=== PATIENT | male | born 1955 | race Caucasian/White ===

== ENCOUNTER 2018-06-24 19:32 | Inpatient (IN) | payer BC ==
[~2018-06-24] VITALS: Ht 193 cm; Wt 140.4 kg
[~2018-06-24 19:32] MED LIST: ASPIRIN EC81 M1 PO; FISH OIL 1,001000 M2 PO; GLUCOPHAGE XR500 MG PO; HYDROCHLOROTHIA25 M1 PO; LISINOPRIL40 MG PO; LOVASTAT40 PO; MULTI-VITAMIN1 EAC5 PO; NOVOLOG MI100 UNIT/2 SUBQ; REGULAR INSULIN; ZOLOFT100 MG PO
[2018-06-24 19:37] VITALS: BP 154/82
[2018-06-24 20:07] LABS: ABSOLUTE EOSINOPHILS 0.1 thou/uL (0.0-0.7); ABSOLUTE LYMPHOCYTES 1.9 thou/uL (0.8-5.3); ABSOLUTE MONOCYTES 0.9 thou/uL (0.0-1.2); ABSOLUTE NEUTROPHILS 7.2 thou/uL (1.6-8.1); BASOPHILS 0.5 %; EOSINOPHILS 1.3 %; HEMATOCRIT 42.5 % (42.0-52.0); HEMOGLOBIN 14.1 gm/dL (14.0-18.0); LYMPHOCYTES 19.1 %; MCH 29.3 pg (26.0-34.0); MCHC 33.3 g/dL (28.0-37.0); MCV 88.1 fL (80.0-100.0); MONOCYTES 8.5 %; MPV 9.7 fl. (7.2-11.1); NUCLEATED RBCS 0 /100WBC; PLATELET COUNT* 242 thou/uL (150-400); POLYS 70.6 %; RBC 4.82 mil/uL (4.50-6.00); RDW-CV 13.9 % (10.5-14.5); WBC 10.2 thou/uL (4.0-11.0)
[2018-06-24 20:15] LABS: ANION GAP 7 mmol/L (7-16); BUN 25 mg/dL (7-18); CALCIUM 9.1 mg/dL (8.5-10.1); CHLORIDE 98 mmol/L (98-107); CO2 30 mmol/L (21-32); CREATININE 1.2 mg/dL (0.6-1.3); GLUCOSE 397 mg/dL (70-99); POTASSIUM 3.7 mmol/L (3.5-5.1); PROTIME 10.6 Seconds (9.20-11.50); SODIUM 135 mmol/L (136-145)
[2018-06-24 20:26] LABS: ALBUMIN 4.1 g/dL (3.4-5.0); ALKALINE PHOSPHATASE 62 U/L (46-116); LIPASE 82 U/L (73-393); NT-PRO BRAIN NAT PEPTIDE 59 pg/mL (<300); SGOT 27 U/L (15-37); SGPT 46 U/L (30-65); TOTAL BILIRUBIN 0.4 mg/dL (<0.1-1.0); TOTAL PROTEIN 7.5 g/dL (6.4-8.2); TROPONIN-I LEVEL <0.06 ng/mL (<0.06)
[2018-06-24 21:57] VITALS: BP 130/57
[2018-06-24 22:30] VITALS: BP 154/68
[2018-06-25 04:00] VITALS: BP 139/52
--- NOTE | 2018-06-25 04:09 | NUR ---
RECEIVED REPORT AND ASSUMED CARE AT 2215. PT TRANSPORTED FROM ED TO ROOM 231. VSS. CARDIAC MONITORING IN PLACE. ASSESSMENT COMPLETED CHARTED. PT ORIENTATED TO ROOM, CALL LIGHT, FALL POLICY. ADMISSION COMPLETED CHARTED. DISCUSSED PLAN OF CARE WITH PT, NPO AFTER MIDNIGHT. PT UP AD WILLARD IN ROOM, ON RA. NURSING WILL CONTINUE TO MONITOR
[2018-06-25] MEDS ORDERED: LANTUS SUBQ (04:34)
[2018-06-25] MEDS ORDERED: IBUPROFEN 800800 M1 PO (04:35)
[2018-06-25] MEDS ORDERED: PROBIOTIC1 EAC1 PO (04:36)
[2018-06-25] MEDS ORDERED: DEPAKOTE ER500 MG PO (04:36)
[2018-06-25] MEDS ORDERED: COQ-10100 MG PO (04:37)
[2018-06-25] MEDS ORDERED: CINNAMON500 MG PO (04:37)
[2018-06-25] MEDS ORDERED: VITAMIN E400 UNIT PO (04:38)
[2018-06-25] MEDS ORDERED: VITAMIN D3400 UNIT PO (04:38)
[2018-06-25] MEDS ORDERED: ZINC50 M1 PO (04:39)
[2018-06-25] MEDS ORDERED: CLARITIN-D 12 H1 TA2 PO (04:41)
[2018-06-25 04:45] LABS: HEMATOCRIT 36.2 % (42.0-52.0); MCH 29.2 pg (26.0-34.0); MCHC 33.3 g/dL (28.0-37.0); MCV 87.6 fL (80.0-100.0); MPV 9.8 fl. (7.2-11.1); RBC 4.13 mil/uL (4.50-6.00); RDW-CV 13.7 % (10.5-14.5); WBC 5.8 thou/uL (4.0-11.0)
[2018-06-25 04:57] LABS: HEMOGLOBIN 12.1 gm/dL (14.0-18.0)
[2018-06-25 05:16] LABS: ALBUMIN 3.4 g/dL (3.4-5.0); CALCIUM 8.6 mg/dL (8.5-10.1); CREATININE 1.1 mg/dL (0.6-1.3); POTASSIUM 4.2 mmol/L (3.5-5.1); TOTAL BILIRUBIN 0.2 mg/dL (<0.1-1.0)
[2018-06-25 08:30] VITALS: BP 134/59
--- NOTE | 2018-06-25 12:00 | EKG ---
[place] [address] ELECTROCARDIOGRAM REPORT Name: JAMAAL COMBS Room: [address] ADM IN .R.#: [id number] Admission: 06/24/18 Attend Phys: Simba Ibarra, Discharge: Date of : 55 Report #: [id number] THIS REPORT FOR: //name// [facility] ED Test Date: 2018-06-24 Test Time: 19:58:14 Pat Name: JAMAAL COMBS Department: Room: [facility] Gender: M Spray Pilot: : 1955 Requested By: Munira Reyes Order Number: [id number] MD: Silvano Scott Measurements Intervals [place] Rate: 141 P: MT: QRS: -128 QRSD: 171 T: 12 QT: 364 QTc: 558 Interpretive Statements Atrial fibrillation Right bundle branch block Diffuse ST depression Compared to ECG 12/12/2012 22:03:16 Sinus rhythm no longer present Electronically Signed On 06-25-2018 12:00:17 CDT by Silvano Scott [email or web address] <ELECTRONICALLY SIGNED> By: Silvano Scott MD, FACC 06/25/18 1200 57 57 Silvano Scott MD, FAC /EPI
[2018-06-25 12:02] VITALS: BP 149/63
[2018-06-25 12:02] LABS: ANION GAP 8 mmol/L (7-16); BUN 25 mg/dL (7-18); CALCIUM 8.4 mg/dL (8.5-10.1); CHLORIDE 99 mmol/L (98-107); CHOLESTEROL 157 mg/dL (<200); CO2 29 mmol/L (21-32); CREATININE 0.9 mg/dL (0.6-1.3); GLUCOSE 275 mg/dL (70-99); HDL CHOLESTEROL 35 mg/dL (>40); LDL CHOLESTEROL 93 mg/dL (<100); SODIUM 136 mmol/L (136-145); TC:HDL 4.5 Ratio (Not establshd); TRIGLYCERIDE 149 mg/dL (<150); VLDL 30 mg/dL (<40)
[2018-06-25 12:04] LABS: SERUM ASSESSMENT Clear
[2018-06-25 16:00] VITALS: BP 158/66
--- NOTE | 2018-06-25 16:18 | NUR ---
ASSUMED PT CARE AT 0700 PT IS ALERT AND ORIENTED X 4 PT DENIES PAIN OR SOA ON RA, PT IS UP AD WILLARD PT IS NOT A FALL RISK, PAGED PHYSICIAN WHO RESTARTED HOME MEDICATIONS CARDIOLOGY SAW PT WHO ORDERED PT DIET, PT WILL HAVE CARDIAC CATH TOMORROW PT WILL BE NPO AT MIDNIGHT TONIGHT, PT IS SR ON THE MONITOR, GAVE PT FLU SHOT, PT IS ANXIOUS REGARDING CATH ANSWERED QUESTIONS APPROPRIATELY WILL CONTINUE TO MONITOR
[2018-06-25 20:22] VITALS: BP 149/67
[2018-06-26] VITALS (15 sets, daily range): BP systolic 140–181; BP diastolic 54–78
--- NOTE | 2018-06-26 06:27 | NUR ---
ASSUMED CARE OF 1930. FILM FLAT INSPECTOR IN PLACE. NO COMPLAINTS OF PAIN. ASSESSMENT COMPETED CHARTED. DISCUSSED PLAN OF CARE FOR THE EVENING. VERBALIZED UNDERSTANDING. UP AD WILLARD AND ON RA. BED LOCKED IN THE LOWEST POSITION AND CALL LIGHT WITHIN REACH. HOURLY ROUDNING COMPLETED. NURISING WILL CONTINUE TO MONITOR.
--- NOTE | 2018-06-26 09:11 | CON ---
[address] [address] CONSULTATION Name: JAMAAL COMBS Room: [address] IN .R.#: [id number] Admission: 06/24/18 Attend Phys: Simba Ibarra, Discharge: Date of : 55 Report #: [id number] THIS REPORT FOR: //name// CC: Simba Foote DATE OF SERVICE: 06/25/2018 INPATIENT CONSULTATION CHIEF COMPLAINT: Chest pain. HISTORY OF PRESENT ILLNESS: The patient is a 62-year-old man with a history of diabetes mellitus, who presented with sudden onset of palpitations, but he also had chest discomfort described as a centrally located chest pressure, which radiated upwards. He presented in atrial fibrillation with a heart rate in the 140s to 160s. He converted on IV Cardizem overnight. His presenting ECG showed marked anterolateral ST-segment depression diffusely when his heart rate was in the 140s to 150s. This morning, he is chest pain-free. He has ruled out for an acute myocardial infarction. He denies any new neuro symptoms of numbness, weakness, visual changes or slurred speech. He has no documented history of heart disease. However, the patient admits he has been having some chest discomfort off and on for the last several weeks. 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 PAST MEDICAL HISTORY: Significant for insulin-dependent diabetes mellitus diagnosed in the mid-to-late 1990s. He has morbid obesity. He has hypertension. He has hyperlipidemia. He was hospitalized in 2013 for a DKA-type episode and he had some neurologic symptoms and a subsequent MRI/MRA showed a questionable hemorrhagic stroke, but he was seen by Neurology and ultimately, it was decided that it was likely artifact and he has not really followed up with a neurologist instead or had any new neurologic symptoms. MEDICATIONS: Medications at home include insulin, metformin 1000 mg p.o. b.i.d., lovastatin, lisinopril 40 mg daily, hydrochlorothiazide 25 mg daily, sertraline 100 mg at bedtime and baby aspirin. ALLERGIES: He [place] [address] CONSULTATION Name: JAMAAL COMBS Room: [address]#: [id number] Admission: 06/24/18 Attend Phys: Simba Ibarra, Discharge: Date of : 55 Report #: [id number] SOCIAL HISTORY: He is . He does not smoke. He drinks socially. REVIEW OF SYSTEMS: GENERAL: No fevers or chills. NEUROLOGIC: Denies headaches, blurry vision, slurred speech or numbness. CARDIOVASCULAR: Positive chest discomfort. Positive dyspnea on exertion. Positive palpitations. GASTROINTESTINAL: No abdominal pain, nausea, vomiting or hematemesis. GENITOURINARY: No dysuria or hematuria. RENAL: No history of kidney failure. SKIN: No rashes. ENDOCRINE: Positive hyperlipidemia. Positive diabetes. PHYSICAL EXAMINATION: VITAL SIGNS: Weight is 290 pounds. His blood pressure was 154/82 on checking and pulse was 124. This morning, vital signs are more stable. His blood pressure is 134/59. His heart rate is 63. GENERAL: This is a pleasant, moderately obese adult male. HEENT: Eyes, EOMs are intact. There is no facial asymmetry. NECK: Supple. No jugular venous distention. Upstrokes are normal. CARDIOVASCULAR EXAMINATION: Regular. I cannot hear a murmur or S3. LUNGS: Clear to auscultation bilaterally. ABDOMEN: Soft and nontender. EXTREMITIES: There is no peripheral edema. NEUROLOGIC: There are no focal deficits. SKIN: Warm and dry. LABORATORY DATA: Electrocardiogram on presentation shows atrial fibrillation with a right bundle branch morphology and deep anterolateral and inferior ST-segment depression. There is no ECG from this morning. He is on telemetry in sinus rhythm with a conduction delay. His troponins is 0.06. Hemoglobin is 12.1, white blood cell count is 5.8 and platelet count is 221,000. Sodium is 137, potassium is 4.2, chloride is 100, CO2 is 28, BUN is 27, creatinine is 1.1 and glucose is 291. Troponin I is 0.06. Cholesterol is pending. Chest x-ray shows no acute cardiopulmonary abnormality. IMPRESSION AND PLAN: 1. Paroxysmal atrial fibrillation. He has converted with IV Cardizem. His NEGIN-VASc score is such that he would need to be anticoagulated with a novel agent, but his symptoms and ECG findings are concerning for unstable angina. I elected to hold anticoagulation, but placed him on oral Cardizem for the time being. 2. Unstable angina. He had fairly marked ST-segment changes and symptoms compatible with angina. He has numerous cardiovascular risk factors including diabetes mellitus, which I do not think is fairly well controlled. I discussed different diagnostic and treatment options. I recommended further evaluation [address] [address] CONSULTATION Name: JAMAAL COMBS Room: 231-P [facility] IN .R.#: [id number] Admission: 06/24/18 Attend Phys: Simba Ibarra, Discharge: Date of : 55 Report #: [id number] with diagnostic cardiac catheterization, as a stress test would likely be abnormal. 3. Diabetes mellitus, per hospital colleagues. 4. Hypertension. I will place him on oral Cardizem, which should help with his blood pressure elevations. <ELECTRONICALLY SIGNED> By: Ralf Huang MD, FACC 06/26/18 0911 1132 [id number] Scott MD, FACC /nt
--- NOTE | 2018-06-26 09:30 | NUR ---
ASSUMED PT. CARE AND RECEIVED REPORT AT 0730. PT A/OX4, VSS, MONITOR ON TRACING SR BBB. PT. DENIES CURRENT PAIN/SOB. ON RA @ 94%, WITH HOME CPAP AT HS. FULL ASSESSMENT COMPLETED, REFER TO CHARTING. PT. AWARE OF PLAN FOR CATH TODAY, PT. S.O. AT BEDSIDE. CATH WILL NOT BE UNTIL THIS AFTERNOON. PT. INITIALLY NPO, HOWEVER DR. HAYNES ON UNIT AND STATES PT. CAN EAT LIGHT BREAKFAST DUE TO THE LATE NATURE OF HIS PROCEDURE TODAY. CALL LIGHT IN REACH, WILL CONTINUE WITH PLAN OF CARE.
--- NOTE | 2018-06-26 11:30 | NUR ---
MET WITH PT TO DISCUSS HOME SITUATION/DC PLANNING. PT LIVES WITH S/O, WORKS AND IS INDEPENDENT AND ACTIVE. USES CPAP. DENIES DC NEEDS. WILL FOLLOW
--- NOTE | 2018-06-26 13:14 | 2DMMODE ---
[place] [address] 2 D/M-MODE ECHOCARDIOGRAM Name: JAMAAL COMBS Room: [address] IN [facility]#: [id number] Admission: 06/24/18 Attend Phys: Simba King Discharge: Date of : 55 Date of Service: 06/26/18 1314 Report #: [id number] THIS REPORT FOR: //name// APPROVED REPORT Study performed: 06/26/2018 10:28:37 EXAM: Comprehensive 2D, Doppler, and color-flow Echocardiogram Patient Location: In-Patient Room #: [facility] Status: routine BSA: 2.59 HR: 66 bpm BP: 147/65 mmHg Rhythm: NSR Other Information Study Quality: Good Indications Atrial Fibrillation 2D Dimensions IVSd: 13.17 (7-11mm) LVOT Diam: 22.25 (18-24mm) LVDd: 52.42 mm PWd: 10.50 (7-11mm) Ascending Ao: 34.95 (22-36mm) LVDs: 25.90 (25-40mm) Aortic Root: 37.23 mm Volumes Left Atrial Volume (Systole) LA ESV Index: 31.20 mL/m2 Aortic Valve AoV Peak Tanvir.: 1.30 m/s AO Peak Gr.: 6.71 mmHg LVOT Max P.93 mmHg AO Mean Gr.: 3.85 mmHg LVOT Mean P.71 mmHg LVOT Max V: 1.22 m/s AO V2 VTI: 32.73 cm LVOT Mean V: 0.75 m/s ALEJANDRA (VTI): 3.36 cm2 LVOT V1 VTI: 28.31 cm Mitral Valve E/A Ratio: 1.27 MV Decel. Time: 236.09 ms MV E Max Tanvir.: 0.98 m/[place] [address] 2 D/M-MODE ECHOCARDIOGRAM Name: JAMAAL COMBS Room: [address] IN .R.#: [id number] Admission: 06/24/18 Attend Phys: Simba King Discharge: Date of : 55 Date of Service: 06/26/18 1314 Report #: [id number] PHT: 68.47 ms MVA (PHT): 3.21 cm2 TDI E/Lateral E': 8.91 E/Medial E': 8.91 Medial E' Tanvir.: 0.11 m/s Lateral E' Tanvir.: 0.11 m/s Pulmonary Valve PV Peak Tanvir.: 1.01 m/s PV Peak Gr.: 4.12 mmHg Tricuspid Valve RAP Estimate: 5.00 mmHg TR Peak Gr.: 24.14 mmHg RVSP: 29.00 mmHg PA Pressure: 29.00 mmHg Left Ventricle The left ventricle is normal size. There is normal LV segmental wall motion. Mild concentric left ventricular hypertrophy. Left ventricular systolic function is normal. The left ventricular ejection fraction is within the normal range. LVEF is 60-65%. The left ventricular diastolic function is normal. Right Ventricle The right ventricle is normal size. The right ventricular systolic function is normal. Atria Left atrium is borderline dilated. The right atrium size is normal. Aortic Valve Mild aortic valve sclerosis. No aortic regurgitation is present. There is no aortic valvular stenosis. Mitral Valve The mitral valve is normal in structure. Mild mitral regurgitation. No evidence of mitral valve stenosis. Tricuspid Valve The tricuspid valve is normal in structure. Trace tricuspid regurgitation. No pulmonary hypertension. Pulmonic Valve The pulmonary valve is normal in structure. Trace [place] [address] 2 D/M-MODE ECHOCARDIOGRAM Name: JAMAAL COMBS Room: [address] IN [facility]#: [id number] Admission: 06/24/18 Attend Phys: Simba King Discharge: Date of : 55 Date of Service: 06/26/18 1314 Report #: [id number] Great Vessels The aortic root is normal in size. IVC is normal in size and collapses >50% with inspiration. Pericardium There is no pericardial effusion. <Conclusion> The left ventricle is normal size. Mild concentric left ventricular hypertrophy. Left ventricular systolic function is normal. The left ventricular ejection fraction is within the normal range. LVEF is 60-65%. The left ventricular diastolic function is normal. The right ventricle is normal size. Left atrium is borderline dilated. Mild aortic valve sclerosis. No aortic regurgitation is present. There is no aortic valvular stenosis. The mitral valve is normal in structure. Mild mitral regurgitation. The tricuspid valve is normal in structure. IVC is normal in size and collapses >50% with inspiration. There is no pericardial effusion. There is normal LV segmental wall motion. <ELECTRONICALLY SIGNED> By: Kris Rubio MD, FACC 06/26/184 13 13 Kris Rubio MD, FACC /INF
--- NOTE | 2018-06-26 19:06 | NUR ---
PT. COMPLETED CARDIAC CATH WITH STENT PLACEMENT, TOLERATED WELL AND IS CURRENTLY SLEEPING. PT. HAS HAD NO COMPLAINTS OF PAIN AND HAS REMAIN IN SR. THIS SHIFT. RIGHT GROIN DRESSING REMAINS C/D/I. HOURLY ROUNDING COMPLETED THROUGH OUT THE DAY FOR PT. SAFETY.
[2018-06-27] VITALS: BP 189/79
[2018-06-27 04:00] VITALS: BP 121/57; BP 152/71
[2018-06-27 04:40] LABS: HEMATOCRIT 35.4 % (42.0-52.0); HEMOGLOBIN 11.9 gm/dL (14.0-18.0); MCH 29.3 pg (26.0-34.0); MCHC 33.6 g/dL (28.0-37.0); MCV 87.3 fL (80.0-100.0); MPV 9.3 fl. (7.2-11.1); RBC 4.06 mil/uL (4.50-6.00); RDW-CV 13.9 % (10.5-14.5); WBC 4.9 thou/uL (4.0-11.0)
[2018-06-27 04:57] LABS: ALBUMIN 3.2 g/dL (3.4-5.0); ALKALINE PHOSPHATASE 48 U/L (46-116); ANION GAP 4 mmol/L (7-16); BUN 17 mg/dL (7-18); CALCIUM 8.5 mg/dL (8.5-10.1); CHLORIDE 101 mmol/L (98-107); CO2 29 mmol/L (21-32); CREATININE 0.7 mg/dL (0.6-1.3); GLUCOSE 277 mg/dL (70-99); POTASSIUM 3.9 mmol/L (3.5-5.1); SGOT 19 U/L (15-37); SGPT 32 U/L (30-65); SODIUM 134 mmol/L (136-145); TOTAL BILIRUBIN 0.2 mg/dL (<0.1-1.0); TROPONIN-I LEVEL <0.06 ng/mL (<0.06)
--- NOTE | 2018-06-27 06:56 | NUR ---
ASSUMED CARE OF PT AT 1930. VSS. MAGAZINE JOURNALIST IN PLACE. NO COMPLAINTS OF PAIN. ASSESSMENT COMPLETED CHARTED. DISCUSSED PLAN OF CARE FOR THE EVENING. VERBALIZED UNDERSTADING. UP AD WILLARD AND ON RA. BED LOCKED IN THE LOWEST POSITION AND CALL LIGHT WITHIN REACH. HOURLY ROUDNING COMPLETED. ALL NEEDS MET. NURSING WILL CONTINUE TO MONITOR.
[2018-06-27 08:00] VITALS: BP 169/73
[2018-06-27] MEDS ORDERED: NITROGLYCERIN0.4 MG SUBLING (10:04)
[2018-06-27] MEDS ORDERED: EFFIENT10 MG PO (10:05)
[2018-06-27] MEDS ORDERED: DILTIAZEM ER300 M1 PO (10:06)
[2018-06-27 10:10] VITALS: BP 169/73
[2018-06-27 10:14] VITALS: BP 169/73
[2018-06-27] MEDS ORDERED: ASPIR 8181 M1 PO (10:22)
[2018-06-27 11:09] VITALS: BP 169/73
--- NOTE | 2018-06-27 18:15 | EKG ---
[place] [address] ELECTROCARDIOGRAM REPORT Name: JAMAAL COMBS Room: [address] DIS IN M.R.#: [id number] Admission: 06/24/18 Attend Phys: Simba Ibarra, Discharge: 06/27/18 Date of : 55 Report #: [id number] THIS REPORT FOR: //name// [facility] Test Date: 2018-06-27 Test Time: 08:53:18 Pat Name: JAMAAL COMBS Department: Room: [address] Gender: M Cloth Layer: : 1955 Requested By: Kris Rubio Order Number: [id number] MD: Ralf Huang Measurements Intervals [place] Rate: 63 P: 47 OR: 184 QRS: 62 QRSD: 175 T: 20 QT: 469 QTc: 481 Interpretive Statements Sinus rhythm Right bundle branch block Compared to ECG 06/24/2018 19:58:14 Atrial fibrillation no longer present ST (T wave) deviation no longer present Electronically Signed On 06-27-2018 18:14:17 CDT by Ralf Huang [email or web address] <ELECTRONICALLY SIGNED> By: Ralf Huang MD, FACC 06/27/18 1814 0853 0853 Ralf Huang MD, FACC /EPI
--- NOTE | 2018-07-01 12:02 | CARD ---
[address] [address] CARDIAC CATH REPORT Name: JAMAAL COMBS Room: [address] IN [facility]#: [id number] Admission: 06/24/18 Attend Phys: Simba Ibarra, Discharge: 06/27/18 Date of : 55 Report #: [id number] THIS REPORT FOR: //name// APPROVED REPORT Study performed: 06/26/2018 14:47:08 Patient Details Patient Status: In-Patient Room #: 231 The patient is a 62 year-old male Event Personnel Kris Rubio Landscape Contractor, Beverly Husain RN Service Member, Grace Minor RTR Monitor, Darrian Lopez Scrub Procedures Performed Art Access - R femoral artery* Left Heart Cath w/or w/o Coronaries [facility] Place w/wo Plasty Single LAD Hemostasis w/ Angioseal Indication Unstable angina Risk Factors Hypercholesterolemia, Hypertension Admission/Lab Medications/Medications given during procedure Aspirin, Platelet Aff. Inhib., Aspirin PO 324 mg, Effient PO 60 mg, Angiomax IV 19.5 mg per kg, Angiomax Drip IV 46.1 ml per hr Procedure Narrative The patient was brought electively to the Cardiac Catheterization Laboratory and was prepped and draped in a sterile manner. The right femoral was infiltrated with 2% Lidocaine subcutaneous anesthesia. A [place] 6 FR sheath was inserted into the right femoral artery. Coronary angiography was performed using coronary diagnostic catheters. The right coronary system was accessed and visualized with a Diagnostic 6Fr JR4 catheter. The left coronary system was accessed and visualized with a Diagnostic 6Fr JL$ catheter. The left ventricle was accessed and visualized with a Diagnostic 6Fr straight pigtail catheter. Left ventricular/Aortic Valve gradient assessed via catheter pullback. Left ventriculogram was performed in MARTINEZ projection. Closure device was deployed with a 6 Fr Angioseal STS 6Fr. Hemostasis was obtained with manual [place] [address] CARDIAC CATH REPORT Name: JAMAAL COMBS Room: [address]#: [id number] Admission: 06/24/18 Attend Phys: Simba Ibarra, Discharge: 06/27/18 Date of : 55 Report #: [id number] removal without any complications. The patient tolerated the procedure well and there were no complications associated with the procedure. There was no hematoma. Intraoperative Conscious Sedation Sedation start time: 15:26 Case end Time: 16:16 Fentanyl 100 mcg Versed 4 mg Fluoro Time: 13.0 minutes Dose: DAP 014368 cGycm2 2077 mGy Contrast Type and Amount: Visipaque 350 ml Coronary Angiography The patient's coronary anatomy is right dominant. Diagnostic Cath Left Main 0% narrowing LAD 40 percent proximal LAD narrowing with focal 90% mid vessel stenosis Circumflex 40% narrowing of the proximal portion of the first marginal branch Right Coronary Dominant vessel with 20% mid vessel narrowing and 20% proximal posterior descending branch narrowing Left Ventriculography The left ventricle is normal in size with normal contractility. The left ventricular ejection fraction is estimated to be 65%. Left ventricular wall motion abnormalities are not present. There is no mitral insufficiency. Hemodynamics The aortic pressure is 146/64 mmHg with a mean of 96 mmHg. The left ventricular pressure is 142/7 mmHg with a mean of mmHg. The left ventricular end diastolic pressure is 17 mmHg. Pullback from the left ventricle to the aorta revealed no gradient across the aortic valve. PCI Technique Lesion Percutaneous coronary intervention was performed on the proximalmid left anterior descending artery segment. The lesion stenosis prior to intervention was 90% with FAVIOLA 3 flow. A 6FR XB 3.5 100CM Guide Catheter was used to engage the ostium. A IG: ProwaterFlex 180CM Interventional Guidewire was used to cross the lesion[place] [address] CARDIAC CATH REPORT Name: JAMAAL COMBS Room: [address]#: [id number] Admission: 06/24/18 Attend Phys: Simba Ibarra, Discharge: 06/27/18 Date of : 55 Report #: [id number] A Balloon catheter Trek RX 2.5 X 12 was inserted and inflated up to 12.00atm for 10seconds. STENT DEPLOYMENT A drug-eluting stent Xience Alpine RX 2.5X18 was inserted and inflated up to 10.00atm for 11seconds. Additional Inflation: 14.00atm for 11seconds. POST STENT DEPLOYMENT BALLOON DILATION A Balloon catheter NC Trek RX 2.75 X 8 was inserted and inflated up to 16:00atm for 9seconds. Additional Inflation: 18:00atm for 7seconds. Additional Inflation: 14:00atm for 8seconds. Final angiography reveals 10 % stenosis with FAVIOLA 3 flow. Conclusion #1 significant coronary artery disease characterized by the following: A 40% proximal and 90% focal mid LAD stenosis B 20 percent narrowing of the midportion of the dominant right coronary artery with 20% posterior descending branch narrowing C 40% narrowing of the first marginal branch of the nondominant circumflex #2 mild systemic systolic hypertension with mild elevation of left ventricular end-diastolic pressure at rest #3 normal left ventricular systolic function, estimate ejection fraction being 65% #4 successful percutaneous coronary intervention at the sites of contiguous 40% proximal and 90% mid LAD stenosis with 10% residual narrowing following stent deployment and FAVIOLA-3 flow the distal vessel Recommendations Cardiac Risk Reduction Program Aggressive Medical Therapy Medications Administered Aspirin (any) [place] [address] CARDIAC CATH REPORT Name: JAMAAL COMBS Room: [address]#: [id number] Admission: 06/24/18 Attend Phys: Simba Ibarra, Discharge: 06/27/18 Date of : 55 Report #: [id number] Diagnostic Cath Approved by: Kris Rubio MD Date/Time: 07/01/2018 12:00:23 <ELECTRONICALLY SIGNED> By: Kris Rubio MD, FAC 07/01/18 1202 120 1202Jobuzz Rubio MD, FAC /INF
== END 2018-06-27 12:03 | disposition home or self-care (01) | DRG 247 ==
LOC: M.ERS 19:32 → M.2W 21:32 → M.TBA-ER 21:32 → M.2W 22:17
PROVIDERS: Emergency Medicine; Emergency Medicine Emergency Medical Services; Internal Medicine; Internal Medicine Cardiovascular Disease; ADMIT Family Medicine
PROC: 4A023N7 Measurement of Cardiac Sampling and Pressure, Left Heart, Percutaneous Approach (ICD-10-PCS; principal; 2018-06-26)
PROC: 027034Z Dilation of Coronary Artery, One Artery with Drug-eluting Intraluminal Device, Percutaneous Approach (ICD-10-PCS; 2018-06-26)
PROC: B2111ZZ Fluoroscopy of Multiple Coronary Arteries using Low Osmolar Contrast (ICD-10-PCS; 2018-06-26)
PROC: B2151ZZ Fluoroscopy of Left Heart using Low Osmolar Contrast (ICD-10-PCS; 2018-06-26)
DX: I25.110 Atherosclerotic heart disease of native coronary artery with unstable angina pectoris (principal); I48.0 Paroxysmal atrial fibrillation; E11.9 Type 2 diabetes mellitus without complications; I10 Essential (primary) hypertension; G47.33 Obstructive sleep apnea (adult) (pediatric); E66.01 Morbid (severe) obesity due to excess calories; E78.5 Hyperlipidemia, unspecified; Z79.4 Long term (current) use of insulin; Z79.84 Long term (current) use of oral hypoglycemic drugs; Z79.899 Other long term (current) drug therapy; Z79.82 Long term (current) use of aspirin; Z84.89 Family history of other specified conditions; Z68.37 Body mass index [BMI] 37.0-37.9, adult; Z23 Encounter for immunization